=== PATIENT | male | born 1960 | race Two or more races ===

== ENCOUNTER → 2020-07-21 | Outpatient (CLI) | payer BC | END | disposition home or self-care (01) | LOC: LAB 08:39 | PROVIDERS: ATTEND Internal Medicine | DX: R73.9 Hyperglycemia, unspecified (principal) | CPT/HCPCS: 36415; 82947; 83036 ==

== ENCOUNTER 2023-07-10 09:50 | Day surgery (SDC) | payer BC ==
[2023-07-03 10:01] LABS: Basophils # (auto) 0.1 10 ^3/uL (0-0.2); Basophils % (auto) 0.8 % (0.0-2.0); Eosinophils # (auto) 0.2 10 ^3/uL (0-0.8); Eosinophils % (auto) 2.5 % (0.0-7.0); Hematocrit 49.5 % (41.0-53.0); Lymphocytes # (auto) 2.1 10 ^3/uL (0.4-5.4); Lymphocytes % (auto) 31.7 % (10.0-50.0); Mean Corpuscular Hemoglobin 32.4 pg (28.0-32.0); Mean Corpuscular Hgb Conc. 34.4 g/dL (32.0-36.0); Mean Corpuscular Volume 94.1 fL (80.0-100.0); Monocytes # (auto) 0.6 10 ^3/uL (0-1.3); Monocytes % (auto) 8.3 % (0.0-12.0); Neutrophils # (auto) 3.8 10 ^3/uL (1.6-8.6); Neutrophils % (auto) 56.7 % (37.0-80.0); Nucleated Red Blood Cells % 0.1 %; Red Blood Cells 5.26 10^6/uL (4.5-5.90); Red Cell Distribution Width 12.7 % (11.8-14.3); White Blood Cell 6.8 10^3/uL (4.4-10.8)
[2023-07-03 10:13] LABS: INR 1.01 (0.9-1.15); Partial Thromboplastin Time 28.3 SEC (24.5-34.5); Prothrombin Time 10.6 sec (9.3-11.8)
[2023-07-03 10:21] LABS: Alanine Aminotransferase 23 U/L (7-40); Alkaline Phosphatase 115 U/L (46-116); Anion Gap 8 (5-15); Blood Urea Nitrogen 7 mg/dL (9-23); Calcium 9.8 mg/dL (8.5-10.1); Carbon Dioxide 30 mmol/L (20-30); Chloride 100 mmol/L (98-107); Glucose 272 mg/dL (74-106); Potassium 4.2 mmol/L (3.5-5.1); Sodium 138 mmol/L (136-145)
[2023-07-03 10:22] LABS: Albumin 4.2 g/dL (3.2-4.8); Bilirubin, Total 0.6 mg/dL (0.2-1.0); Total Protein 7.1 g/dL (5.7-8.2)
[2023-07-03 10:37] LABS: Aspartate Aminotransferase 24 U/L (13-40)
[~2023-07-10] VITALS: Ht 172.7 cm; Wt 113.4 kg
[~2023-07-10 09:50] MED LIST: ATEN50TA80 PO; CHOL200064 PO; LOSA100T33 PO
[2023-07-10] MEDS ORDERED: SODIUM CHLORIDE LOCK 10 ML ONE (09:55)
[2023-07-10 12:56] VITALS: O2SAT 100
[2023-07-10] MEDS: diphenhdrAMINE HCL 50 MG/1 ML VL ONE ×2 (13:02→13:04)
[2023-07-10] MEDS: fentaNYL CITRATE 100 MCG/2 ML VL ONE ×3 (13:02→13:11)
[2023-07-10] MEDS: MIDAZOLAM HCL 5 MG/ML-1ML VIAL ONE ×5 (13:02→13:23)
[2023-07-10 13:31] VITALS: TEMP 97.8
[2023-07-10 14:20] VITALS: BP 125/68; PULSE 61; RESP 15; O2SAT 96
== END 2023-07-10 15:30 | disposition home or self-care (01) ==
LOC: GI 09:50
PROVIDERS: ATTEND Internal Medicine Gastroenterology
DX: R19.4 Change in bowel habit (principal); D12.2 Benign neoplasm of ascending colon; K57.30 Diverticulosis of large intestine without perforation or abscess without bleeding; K64.8 Other hemorrhoids; I10 Essential (primary) hypertension; Z79.899 Other long term (current) drug therapy; Z98.890 Other specified postprocedural states
CPT/HCPCS: 36415; 45385; 80053; 85025; 85610; 85730; 88305; J1200; J2250; J3010; J7030; 99152; 99153